=== PATIENT | male | born 1990 | race Hispanic/Latino ===

== ENCOUNTER 2016-07-07 06:11 | Day surgery (SDC) | payer OTHER ==
[2016-07-06 09:04] VITALS: BMI 22.4
[2016-07-07 06:43] VITALS: RESP 18
[2016-07-07] MEDS ORDERED: Lactated Ringer's 1,000 ML IV ONE (07:45)
[2016-07-07] MEDS ORDERED: Lidocaine 1% Inj (20ml) IJ ONE (08:15)
[2016-07-07] MEDS ORDERED: HYDROmorphone 0.5 mg/0.5 ml ISec IVP PRN (08:31)
[2016-07-07] MEDS ORDERED: Oxycodone/Acetaminophen 5/325 mg Tab PO PRN ×2 (08:32)
--- NOTE | 2016-07-07 08:32 | PCM.SURG1 ---
Surgeon's Initial Post Op Note - Surgeon's Notes Surgeon: Dr. Pate Back Digger Operator: PGY-1 Type of Anesthesia: IV Sedation, Local Anesthesia Administered By: Dr. Chatterjee Pre-Operative Diagnosis: left hand soft tissue mass Operative Findings: see dictation Post-Operative Diagnosis: left hand soft tissue mass Operation Performed: left hand excision of soft tissue mass Specimen/Specimens Removed: soft tissue Estimated Blood Loss: EBL {In ML}: 2 Blood Products Given: N/A Drains Used: No Drains Post-Op Condition: Good Date of Surgery/Procedure: 07/07/16 Time of Surgery/Procedure: 08:00
[2016-07-07 10:38] VITALS: BP 118/71; PULSE 72; TEMP 97.8; O2SAT 98
[2016-07-07] MEDS ORDERED: Midazolam 2 MG/2 ML VIAL ONE (12:43)
[2016-07-07] MEDS ORDERED: ePHEDrine 50 mg/ml Inj ONE (12:43)
[2016-07-07] MEDS ORDERED: Bupivacaine 0.5% Inj(30mL) ONE (12:43)
[2016-07-07] MEDS ORDERED: Propofol 10 mg/ml Inj (20 ML) ONE (12:43)
[2016-07-07] MEDS ORDERED: Succinylcholine 200 mg/10 ml Inj IV ONE (12:43)
[2016-07-07] MEDS ORDERED: Lidocaine 1% Inj (20ml) ONE (12:43)
[2016-07-07] MEDS ORDERED: Rocuronium 10 mg/ml (5 ml) ONE (12:43)
--- NOTE | 2016-07-08 11:44 | OP ---
PROCEDURE DATE: 07/07/2016 SURGEON: Jarrod Pate M.D. PARTS SALES ASSOCIATE: None. PREOPERATIVE DIAGNOSIS: Soft tissue mass, left index finger. POSTOPERATIVE DIAGNOSES: 1. Left index finger deep soft tissue mass, greater than 1.5 cm. 2. Left index finger radial digital nerve compression and scar tissue formation. PROCEDURES: 1. Left index finger soft tissue tumor excision, greater than 1.5 cm. 2. Left index finger radial digital nerve neuroplasty and decompression. ESTIMATED BLOOD LOSS: 0. ANESTHESIA: General. SPECIMENS: Soft tissue, nodular finger mass. COMPLICATIONS: None. DISPOSITION: Stable to recovery room. INDICATIONS: This is a 25-year-old male with a history of a finger mass. The patient states he had a foreign object stuck in his finger for a long time now and the mass has been increasing in size and gives him difficulty grasping, using his hand. The patient has failed conservative therapy and elected to undergo the above procedure for diagnostic and treatment purposes. Risks of surgery include, but not limited to, bleeding, infection, tendon, nerve or vessel injury, instability, chronic pain, recurrence, potential need for additional surgery in the future. The patient understands the above risks and elected to undergo the procedure. The patient was brought to the operating room and placed supine on the operating table. Anesthesia was given and prophylactic antibiotics. A nonsterile tourniquet was placed on the left upper extremity. The left upper extremity was then prepped and draped in standard surgical fashion. Timeout was proposed. An incision was outlined. This was a Chevron type incision over the mass at the flexion crease of the MCP joint. Esmarch was used to exsanguinate the hand and the tourniquet was inflated. An incision was made sharply through the skin. Superficial veins were cauterized with bipolar cautery. Next, the mass was exposed with blunt dissection. The mass was identified to be nodular in nature, greater than 1.5 cm and emanating from the deep flexor tendon sheath. The mass was also encompassing and compressing on the radial digital nerve. The radial digital nerve was freed up from scar tissue and neuroplasty was performed. Then, the mass was dissected out throughout all of its borders. It was well encapsulated and released at the base. The mass was sent for pathology. The rest of the tendon looked uninvolved. There are no other masses. The ulnar neurovascular bundle was also dissected out and it was shown to be in continuity. The patient had no restriction of motion, had full range of motion of his MP, PIP, and DIP joint. The wound was then copiously irrigated. The skin was closed with 4-0 nylon interrupted sutures. Sterile dressing was applied with Xeroform, fluffs, 4 x 4's. The patient tolerated the procedure well and was returned to recovery room in excellent condition. Jarrod Pate M.D. cc: [id number] TT: 07/08/2016 11:44:06 en TREMAINE
== END 2016-07-07 10:50 | disposition home or self-care (01) ==
LOC: H.OPSURG 06:11 → EDSEX 09:45 → H.OPSURG 10:50
PROVIDERS: ATTEND Orthopaedic Surgery
DX: R22.9 Localized swelling, mass and lump, unspecified (principal)